=== PATIENT | male | born 1970 | race Caucasian/White ===

== ENCOUNTER 2017-06-11 09:02 | Emergency (ER) | payer BC ==
[~2017-06-11] VITALS: Ht 182.9 cm; Wt 105.0 kg
[~2017-06-11 09:02] MED LIST: ALBU0.5N2 NEB; BENZ1CAP54 PO; LANS30CA63 PO
[2017-06-11 09:06] VITALS: TEMP 36.3; Ht 182.9 cm; Wt 105.0 kg
[2017-06-11 09:35] VITALS: O2SAT 98
[2017-06-11] MEDS ORDERED: AZITHROMYCIN 250 MG TAB PO STA (09:47)
--- NOTE | 2017-06-11 09:52 | EMERGENCY ROOM VISIT NOTE ---
History Report prepared by Milind: Therese Godoy Under the Supervision of: Dr. Yemi Aguirre M.D. First contact with patient: 09:41 Chief Complaint: RESPIRATORY PROBLEMS Stated Complaint: RESPIRATORY PROBLEMS Nursing Triage Summary: Pt reports cough and "feels like someone sitting on his chest." Sx began 1.5 weeks ago. Pt states he has been around other people with similar sx, also was cleaning out a house for 2 days that had mold. Pt had similar sx every year when being on hockey ice, which he has been again. Cough of clear sputum. Runny nose. Pt states he had a refill of prednisone 10mg 2x/day which he start taking 1 week ago with no relief. Pt reports he coughs so hard he vomits. History of Present Illness The patient is a 46 year old male who presents to the Emergency Room with complaints of persistent respiratory problems that began a week and a half ago. The patient states that he has had similar symptoms in the past, noting that it typically happens when he plays ice hockey. He states that this year he first noticed sick contacts at work. The patient states that he began cleaning his grandmother's house, noting mold. He states that he had a refill on his Prednisone prescription from last year, noting that he has been taking 10 mg twice a day, but denies any relief. The patient states that he was previously prescribed Zithromax for similar symptoms. The patient states that he has coughed so much that he vomits. He denies any fever. The patient states that he has used an inhaler in the past. He denies any history of asthma or other lung diseases. The patient denies any active medical problems. Source of History: patient Onset: a week and a half ago Position: other (global) Quality: other (respiratory problems) Timing: other (persistent) Associated Symptoms: + cough, + vomiting, No fevers Review of Systems See HPI for pertinent positives & negatives. A total of 10 systems reviewed and were otherwise negative. Past Medical & Surgical Medical Problems: (1) ACL surgery (2) Bronchitis (3) GERD (gastroesophageal reflux disease) (4) Pneumonia (5) Reflux Family History Diabetes mellitus Social History Smoking Status: Never Smoker Alcohol Use: none Drug Use: none Marital Status: Housing Status: lives with significant other Occupation Status: employed Current/Historical Medications Scheduled Albuterol Hfa (Ventolin Hfa), 3 PUFFS INH Q6H Azithromycin (Zithromax), 500 MG PO DAILY Lansoprazole (Prevacid), 30 MG PO DAILY Prednisone (Prednisone), 10 MG PO DIRECTED Scheduled PRN Benzonatate (Tessalon Perles), 100 MG PO QID PRN for Cough Allergies Coded Allergies: No Known Allergies (Unverified , 08/12/13) Physical Exam Vital Signs Date Time Temp Pulse Resp B/P (MAP) Pulse Ox O2 Delivery O2 Flow Rate FiO2 06/11/17 10:55 88 18 116/75 95 06/11/17 09:35 98 T-piece 06/11/17 09:06 36.3 92 20 135/88 97 Room Air Physical Exam GENERAL: Patient is in no acute distress. HEENT: No acute trauma, normocephalic atraumatic, mucous membranes moist, no nasal congestion, no scleral icterus. NECK: No stridor, no adenopathy, no meningismus, trachea is midline. LUNGS: Diminished breath sounds, no wheezing or rhonchi, breath sounds are equal , dry cough noted. HEART: Without murmurs gallops or rubs, regular rate and rhythm. ABDOMEN: Soft, nontender, bowel sounds positive, no hernias, no peritonitis. EXTREMITIES: No cyanosis or edema, full range of motion of all the joints without pain or difficulty, no signs for acute trauma. NEUROLOGIC: Oriented x 3, no acute motor or sensory deficits, no focal weakness. SKIN: No rash, no jaundice, no diaphoresis. Medical Decision & Procedures ER Provider Diagnostic Interpretation: X-ray results as stated below per interpretation by me and the radiologist: CHEST ONE VIEW PORTABLE CLINICAL HISTORY: Shortness of breath and cough. COMPARISON STUDY: Chest CT August 12, 2013 and chest radiograph August 07, 2013. FINDINGS: Incidental note is made of an azygos fissure. There is no pneumothorax or pleural effusion. There is no consolidation to suggest pneumonia. Cardiomediastinal silhouette is normal. Pulmonary vascularity is normal. Appearance of the chest is unchanged. IMPRESSION: No acute cardiopulmonary findings. Electronically signed by: Marciano Livingston M.D. 06/11/2017 10:10 AM Dictated Date/Time: 06/11/2017 10:08 AM Medications Administered Medications (Trade) Dose Ordered Sig/Robbin Route Start Time Stop Time Status Last Admin Dose Admin Azithromycin (Zithromax Tab) 500 mg NOW STAT PO 06/11/17 09:47 06/11/17 09:50 DC 06/11/17 10:00 500 MG Benzonatate (Tessalon Perles Cap) 100 mg NOW ONCE PO 06/11/17 10:00 06/11/17 10:01 DC 06/11/17 10:00 100 MG Albuterol (Ventolin Hfa Inhaler) 4 puffs NOW ONCE INH 06/11/17 10:00 06/11/17 10:01 DC 06/11/17 09:59 4 PUFFS ED Course 0942: The patient was evaluated in room A3. A complete history and physical exam was performed. 0947: Ordered Azithromycin 500 mg PO. 1000: Ordered Albuterol 4 puffs INH, Benzonatate 100 mg PO. 1038: I reevaluated the patient and he is resting comfortably. I discussed the exam findings with him and I discussed the treatment plan. He verbalized complete understanding and agreement. He is ready to go home. Medical Decision The patient is a 46 year old male who presents to the ED with complaints of respiratory problems. Differential diagnoses considered include Bronchitis or pneumonia, bronchospasm, sinusitis, pneumothorax, CHF. The patient presents with what sounds like bronchitis. An x-ray of the chest was done, there was no pneumonia. On exam, his lung sounds were diminished. He was not toxic or hypoxic. He was not febrile. As the patient has been ill now for at least 10 days, I do think antibiotics are indicated. He was given oral Zithromax. He was given Tessalon for cough, albuterol for bronchospasm. He is being discharged on all the above and he will continue his prednisone taper. Medication Reconcilliation Current Medication List: was personally reviewed by me Impression Primary Impression: Acute bronchitis Additional Impression: Cough Scribe Attestation The scribe's documentation has been prepared under my direction and personally reviewed by me in its entirety. I confirm that the note above accurately reflects all work, treatment, procedures, and medical decision making performed by me. Departure Information Dispostion Home / Self-Care Prescriptions Albuterol Hfa (VENTOLIN HFA) 200 Puffs/07281 Mcg Aers 3 PUFFS INH Q6H, #1 INHALER 1 Refill Prov: Yemi Aguirre M.D. 06/11/17 Benzonatate (TESSALON PERLES) 100 Mg Cap 100 MG PO QID Y for Cough, #30 CAP Prov: Yemi Aguirre M.D. 06/11/17 Azithromycin (Zithromax) 500 Mg Tab 500 MG PO DAILY, #5 TAB Prov: Yemi Aguirre M.D. 06/11/17 Referrals No Doctor, Assigned (PCP) Forms HOME CARE DOCUMENTATION FORM, IMPORTANT VISIT INFORMATION, WORK / SCHOOL INSTRUCTIONS Patient Instructions [facility] Additional Instructions albuterol 3 puffs every 4 hours fluids zithromax as directed Tessalon [place] for cough as directed continue the prednisone return for fever or if worsening Problem Qualifiers
[2017-06-11] MEDS ORDERED: ALBUTEROL HFA 8 GM INHALER INH ONE (10:00)
[2017-06-11] MEDS ORDERED: BENZONATATE 100MG CAP PO ONE (10:00)
--- NOTE | 2017-06-11 10:11 | DIAGNOSTIC IMAGING REPORT ---
CHEST ONE VIEW PORTABLE CLINICAL HISTORY: Shortness of breath and cough. COMPARISON STUDY: Chest CT August 12, 2013 and chest radiograph August 07, 2013. FINDINGS: Incidental note is made of an azygos fissure. There is no pneumothorax or pleural effusion. There is no consolidation to suggest pneumonia. Cardiomediastinal silhouette is normal. Pulmonary vascularity is normal. Appearance of the chest is unchanged. IMPRESSION: No acute cardiopulmonary findings. Electronically signed by: Marciano Livingston M.D. 06/11/2017 10:10 AM Dictated Date/Time: 06/11/2017 10:08 AM
[2017-06-11] MEDS ORDERED: VNTHFA/IN INH ×2 (10:41→10:58)
[2017-06-11] MEDS ORDERED: BENZ100C18 PO ×2 (10:41→10:58)
[2017-06-11] MEDS ORDERED: AZIT500T26 PO ×2 (10:41→10:56)
[2017-06-11] MEDS ORDERED: PRED10TA PO (10:43)
[2017-06-11 10:55] VITALS: BP 116/75; PULSE 88; O2SAT 95
--- NOTE | 2017-06-11 11:13 | Pharmacy Progress Note ---
ED Pharmacist Progress Note Date of Service: Jun 11, 2017. Rx's initially sent to [facility] in [place] instead of [place]. I called the [place] pharmacy and cancelled the 3 Rx's (Zithromax, Albuterol, Benzonatate) and called [place] to confirm that the 3 new Rx's were transmitted successfully to that site. Per [facility] in [place] the 3 Rxs were there.
== END 2017-06-11 10:55 | disposition home or self-care (01) ==
LOC: C.EDB 09:03 → C.EDA 10:55
DX: J40 Bronchitis, not specified as acute or chronic (principal); R05 Cough; K21.9 Gastro-esophageal reflux disease without esophagitis; Z83.3 Family history of diabetes mellitus